=== PATIENT | female | born 2000 | race Hispanic/Latino ===

== ENCOUNTER 2019-05-09 06:21 | Inpatient (IN) | payer OTHER ==
[~2019-05-09] VITALS: Ht 147.3 cm; Wt 62.6 kg
[2019-05-09] MEDS ORDERED: LACTATED RINGERS 1000ML 1,000 ML IV PRN (06:33)
[2019-05-09] MEDS ORDERED: OXYTOCIN-LR 20 UNITS/1000 ML 1,000 ML IV SCH ×2 (06:45→16:45)
[2019-05-09 07:15] LABS: HEMATOCRIT 32.9 % (36-48); MEAN CORPUSCULAR HEMOGLOBIN 29.8 pg (27.0-33.0); MEAN CORPUSCULAR HGB CONC 33.4 g/dL (32.0-36.0); MEAN CORPUSCULAR VOLUME 89.2 fL (80-100); PLATELET COUNT (AUTO) 183 K/uL (130-400); RED BLOOD CELL COUNT(AUTO) 3.69 MIL/uL (4.00-5.50); RED CELL DISTRIBUTION WIDTH 12.9 % (11.0-15.5); WHITE BLOOD COUNT (AUTO) 8.9 K/uL (4.8-10.8)
[2019-05-09 07:23] LABS: AMPHET/METH SCREEN,URINE NEGATIVE (NEGATIVE); BARBITURATE SCREEN, URINE NEGATIVE (NEGATIVE); BENZODIAZEPINES SCREEN,URINE NEGATIVE (NEGATIVE); CANNABINOID SCREEN,URINE NEGATIVE (NEGATIVE); COCAINE SCREEN,URINE NEGATIVE (NEGATIVE); OPIATE SCREEN,URINE NEGATIVE (NEGATIVE); PHENCYCLIDINE SCREEN,URINE NEGATIVE (NEGATIVE)
[2019-05-09 07:30] LABS: APPEARANCE,URINE CLEAR (CLEAR); BILIRUBIN,URINE NEGATIVE (NEGATIVE); COLOR,URINE YELLOW (YELLOW); GLUCOSE, URINE (UA) NEGATIVE (NEGATIVE); KETONES,URINE NEGATIVE (NEGATIVE); LEUKOCYTE ESTERASE ,URINE NEGATIVE (NEGATIVE); NITRATE,URINE NEGATIVE (NEGATIVE); OCCULT BLOOD,URINE TRACE-INTACT (NEGATIVE); PH,URINE 6.5 (5.0-8.0); PROTEIN,URINE NEGATIVE (NEGATIVE); UROBILINOGEN,URINE 0.2 mg/dL (0.2-1.0)
[2019-05-09 07:47] LABS: BACTERIA,URINE Few /HPF (None Seen); RBC,URINE 0-1 /HPF (0-1); WBC,URINE 0-1 /HPF (0-1)
[2019-05-09] MEDS ORDERED: LACTATED RINGERS 1000ML 1,000 ML IV ONE (07:50)
[2019-05-09 07:58] VITALS: BP 120/69
[2019-05-09] MEDS ORDERED: AMPICILLIN 2GM+NS 100ML 100 ML IV ONE (09:58)
[2019-05-09] MEDS ORDERED: AMPICILLIN 2GM+NS 100ML 100 ML IV SCH (10:00)
[2019-05-09 10:26] LABS: RAPID PLASMA REAGIN NONREACTIVE (NONREACTIVE)
[2019-05-09] MEDS ORDERED: PROMETHAZINE HCL 25 MG/ML 1ML AMPULE IM SCH (11:30)
[2019-05-09] MEDS ORDERED: MEPERIDINE-PF 50 MG/ML SYG IVP SCH (11:30)
[2019-05-09] MEDS ORDERED: OXYTOCIN 10 USP UNITS/ML 20 UNIT in LACTATED RINGERS 1000ML 1,000 ML IV SCH (16:15)
[2019-05-09] MEDS ORDERED: BUTORPHANOL TARTRATE 2 MG/ML ONE (17:26)
[2019-05-09] MEDS: AMPICILLIN 1GM+NS 50ML 50 ML IV SCH ×3 (18:00→22:00)
[2019-05-09] MEDS ORDERED: BUTORPHANOL TARTRATE 2 MG/ML IVP ONE (18:45)
[2019-05-09] MEDS ORDERED: NALOXONE HCL 0.4 MG/1 ML ML ONE (19:37)
[2019-05-09] MEDS ORDERED: WITCH HAZEL 1 PAD TP PRN (21:45)
[2019-05-09] MEDS ORDERED: ACETAMINOPHEN 325 MG TAB PO PRN (21:45)
[2019-05-09] MEDS ORDERED: DIPH,PERTUSS(ACELL),TET VAC/PF 0.5 ML VIAL IM PRN (21:45)
[2019-05-09] MEDS ORDERED: ACETAMINOPHEN-CODEINE 300/30MG TAB PO PRN (21:45)
[2019-05-09] MEDS ORDERED: MEASLES/MUMPS/RUBELLA VACCINE, LIVE 0.5 ML/VIAL SQ PRN (21:45)
[2019-05-09] MEDS ORDERED: LANOLIN 30GM OINTMENT TP PRN (21:45)
[2019-05-09] MEDS ORDERED: BENZOCAINE/LANOLIN/ALOE VERA 60 ML AEROSOL TP PRN (21:45)
[2019-05-09] MEDS: IBUPROFEN 600 MG TABLET PO PRN (22:38)
[2019-05-09 23:30] VITALS: BP 122/62
--- NOTE | 2019-05-09 23:30 | NUR ---
Patent received from Labor & Delivery: Patient came in via wheelchair accompanied by automotive consultant. and mother of patient. Patient and mom oriented to the room, call light given. Plan of care discussed with patient verbalizes understanding.
[2019-05-10] MEDS ORDERED: PREN-202 PO (00:40)
--- NOTE | 2019-05-10 02:45 | NUR ---
Patient: Patient visited baby in the nursery accompanied with her mother.
[2019-05-10 05:55] VITALS: BP 102/66
[2019-05-10 06:10] LABS: HEPATITIS Bs ANTIGEN SCREEN P Negative (Negative)
[2019-05-10] MEDS ORDERED: FLU VACC QS2019-20 36MOS UP/PF 60 MCG/0.5 ML ML IM ONE ×2 (07:00→09:14)
[2019-05-10 07:18] LABS: HEMATOCRIT 30.7 % (36-48); MEAN CORPUSCULAR HEMOGLOBIN 29.4 pg (27.0-33.0); MEAN CORPUSCULAR HGB CONC 32.6 g/dL (32.0-36.0); MEAN CORPUSCULAR VOLUME 90.3 fL (80-100); PLATELET COUNT (AUTO) 168 K/uL (130-400); RED CELL DISTRIBUTION WIDTH 13.1 % (11.0-15.5); WHITE BLOOD COUNT (AUTO) 19.8 K/uL (4.8-10.8)
[2019-05-10 08:00] VITALS: BP 102/59
--- NOTE | 2019-05-10 09:00 | NUR ---
PATIENT AMBULATED TO NURSERY TO VISIT WITH BABY. PATIENT DENIES PAIN AND ONLY C/O MILD CRAMPING. MOTHER AT BEDSIDE.
[2019-05-10] MEDS: DOCUSATE SODIUM 100 MG CAP PO SCH ×2 (09:42→21:00)
[2019-05-10] MEDS: IBUPROFEN 600 MG TABLET PO PRN (09:43)
[2019-05-10 12:00] VITALS: BP 111/60
--- NOTE | 2019-05-10 14:00 | NUR ---
DR. COLE ROUNDED AND INDICATED PATIENT COULD STAY WITH BABY SINCE SHE IS . PATIENT VISITING BABY AT THIS TIME.
[2019-05-10 16:00] VITALS: BP 105/56
--- NOTE | 2019-05-10 17:22 | NUR ---
SS/NSG Trigger: Met with pt this afternoon to discuss nsg trigger received regarding "no " care. Per pt she was receiving care in [facility] by Dr. Bianka Lim. Pt mentions that she came to the around 05/02/19 and has been staying with her cousin Zelda ([phone]), Per pt she has a car seat and all items baby will need at discharge. Pt in nursery w baby during visit. Pt mentions that she has a good support system at home including her Salvador Cain. Community resource packet provided to pt at this time. No further SS/CM interventions needed at this time.
--- NOTE | 2019-05-10 19:20 | NUR ---
BEDSIDE REPORT GIVEN TO INCOMING NURSE DAMIEN SHIN. PATIENT IN ROOM RESTING IN BED.
[2019-05-10 19:25] VITALS: BP 107/54
[2019-05-10 23:50] VITALS: BP 107/65
[2019-05-11 03:35] VITALS: BP 109/55
[2019-05-11] MEDS: IBUPROFEN 600 MG TABLET PO PRN (06:16)
[2019-05-11 07:18] VITALS: BP 92/68
[2019-05-11] MEDS: DOCUSATE SODIUM 100 MG CAP PO SCH (09:34)
--- NOTE | 2019-05-11 10:00 | NUR ---
DR. COLE AROUNDED AND DISCHARGED PATIENT TO HOME TODAY. PATIENT REMAINS STAble and afebrile.
[2019-05-11 11:49] VITALS: BP 103/60
[2019-05-11 16:00] VITALS: BP 105/66
--- NOTE | 2019-05-11 18:35 | NUR ---
PATIENT WAS TAKEN VIA W/C TO [facility]ILY [facility] CARRYING BABY IN ARMS. PATIENT IS STABLE AND DENIES PAIN.
== END 2019-05-11 18:35 | disposition home or self-care (01) | DRG 807 ==
LOC: OBSVTOIN 06:21 → LDH 06:21 → WSH 23:30
PROVIDERS: ADMIT Obstetrics & Gynecology; ATTEND Obstetrics & Gynecology
PROC: 10E0XZZ Delivery of Products of Conception, External Approach (ICD-10-PCS; principal; 2019-05-09)
PROC: 0KQM0ZZ Repair Perineum Muscle, Open Approach (ICD-10-PCS; 2019-05-09)
PROC: 10907ZC Drainage of Amniotic Fluid, Therapeutic from Products of Conception, Via Natural or Artificial Opening (ICD-10-PCS; 2019-05-09)
PROC: 3E02340 Introduction of Influenza Vaccine into Muscle, Percutaneous Approach (ICD-10-PCS; 2019-05-09)
PROC: 3E0234Z Introduction of Serum, Toxoid and Vaccine into Muscle, Percutaneous Approach (ICD-10-PCS; 2019-05-09)
DX: O69.1XX0 Labor and delivery complicated by cord around neck, with compression, not applicable or unspecified (principal); Z37.0 Single live birth; O70.1 Second degree perineal laceration during delivery; Z3A.39 39 weeks gestation of pregnancy; Z23 Encounter for immunization
CPT/HCPCS: 36415; 80305; 81001; 85027; 86592; 86701; 86850; 86900; 86901; 87340; 87390; 90707; 90715; G0378; J0290; J0595; J2175; J2310; J2550; J2590; J7120; Q2035